=== PATIENT | male | born 1990 | race Two or more races ===

== ENCOUNTER 2020-01-05 10:14 | Inpatient (IN) | payer OTHER ==
[~2020-01-05] VITALS: Ht 182.9 cm; Wt 92.5 kg
[2020-01-05] MEDS ORDERED: AMOX500T PO (10:20)
[2020-01-05] MEDS ORDERED: IBUP-1114 PO (10:37)
[2020-01-05] MEDS ORDERED: PHEN-815 PO (10:37)
[2020-01-05 11:25] LABS: INFLUENZA A AMPLIFICATION NEGATIVE (NEGATIVE); INFLUENZA B AMPLIFICATION NEGATIVE (NEGATIVE)
[2020-01-05] MEDS ORDERED: NS 1,000 ML IV ONE ×2 (11:45→17:30)
[2020-01-05 13:06] LABS: BASO % 0.3 % (0.0-1.0); HEMATOCRIT 45.6 % (42.0-52.0); HEMOGLOBIN 15.4 g/dl (13.5-17.5); LYMPH # 1.1 10^3/uL (1.5-5.0); LYMPH % 7.1 % (24.0-44.0); MEAN CORPUSCULAR HGB CONC 33.8 g/dl (32.0-36.5); MEAN CORPUSCULAR VOLUME 94.8 fl (80.0-96.0); MONO % 12.9 % (0.0-5.0); NEUTROPHILS # 12.5 10^3/uL (1.5-8.5); NEUTROPHILS % 79.2 % (36.0-66.0); PLATELET COUNT, AUTOMATED 243 10^3/uL (150-450); RED BLOOD COUNT 4.81 10^6/uL (4.30-6.10); WHITE BLOOD COUNT 15.8 10^3/uL (4.0-10.0)
[2020-01-05 13:36] LABS: ALBUMIN 3.8 GM/DL (3.2-5.2); ALT/SGPT 19 U/L (12-78); BILIRUBIN,TOTAL 1.3 MG/DL (0.2-1.0); BLOOD UREA NITROGEN 11 MG/DL (7-18); CALCIUM LEVEL 9.6 MG/DL (8.5-10.1); CARBON DIOXIDE LEVEL 30 MEQ/L (21-32); CHLORIDE LEVEL 100 MEQ/L (98-107); GLOMERULAR FILTRATION RATE > 60.0 (>60); GLUCOSE, FASTING 90 MG/DL (70-100); LIPASE 74 U/L (73-393); POTASSIUM SERUM 4.3 MEQ/L (3.5-5.1); SODIUM LEVEL 135 MEQ/L (136-145); TOTAL PROTEIN 7.8 GM/DL (6.4-8.2)
[2020-01-05 14:31] LABS: MONO REFLEX EBV COMP NEGATIVE (NEGATIVE)
--- NOTE | 2020-01-05 14:57 | REPVR ---
PROCEDURE INFORMATION: Exam: CT Head Without Contrast Exam date and time: 01/05/2020 1:33 PM Age: 29 years old Clinical indication: Pain; Headache; Additional info: Severe migraine, with neck stiffness, sensitive light TECHNIQUE: Imaging protocol: Computed tomography of the head without contrast. Radiation optimization: All CT scans at this facility use at least one of these dose optimization techniques: automated exposure control; mA and/or kV adjustment per patient size (includes targeted exams where dose is matched to clinical indication); or iterative reconstruction. COMPARISON: No relevant prior studies available. FINDINGS: Brain: The cortical/white matter interfaces are preserved throughout the brain. There is no evidence of intracranial hemorrhage. No parenchymal mass lesions identified. Ventricles: The ventricular system is normal in size and configuration. Bones/joints: No acute fractures of the skull are identified. Sinuses: The visualized paranasal sinuses are clear. Mastoid air cells: The mastoid air cells are clear. Orbits: The orbits appear unremarkable. Soft tissues: The soft tissues appear unremarkable. IMPRESSION: Normal appearance of the brain. Electronically signed by: Dorothy Hanna On 01/05/2020 14:56:57 PM
--- NOTE | 2020-01-05 15:03 | REPVR ---
PROCEDURE INFORMATION: Exam: CT Cervical Spine Without Contrast Exam date and time: 01/05/2020 1:33 PM Age: 29 years old Clinical indication: Other: Stiff; Additional info: Severe migraine, with neck stiffness, sensitive light TECHNIQUE: Imaging protocol: Computed tomography images of the cervical spine without contrast. Radiation optimization: All CT scans at this facility use at least one of these dose optimization techniques: automated exposure control; mA and/or kV adjustment per patient size (includes targeted exams where dose is matched to clinical indication); or iterative reconstruction. COMPARISON: No relevant prior studies available. FINDINGS: Vertebrae: There is normal alignment of the visualized spine. There is no evidence of acute fracture. C2-C3: No disc herniation. No spinal canal stenosis. No neural foraminal narrowing. C3-C4: There is mild disc narrowing, uncovertebral ridging, and a small disc osteophyte complex at C3-C4, resulting in mild stenosis stenosis of the spinal canal and mild bilateral neural foraminal narrowing. C4-C5: There is mild narrowing of the C4-C5 disc with uncovertebral ridging and a small disc osteophyte complex. There is associated mild central canal stenosis and mild bilateral neural foraminal narrowing. C5-C6: . There is mild uncovertebral ridging at C5-C6. There is a small disc bulge. There is minimal central canal stenosis. There is mild left neural foraminal narrowing. C6-C7: There is minimal uncovertebral ridging at C6-C7. There is no significant central or foraminal stenosis at this level. C7-T1: No disc herniation. No spinal canal stenosis. No neural foraminal narrowing. Soft tissues: Unremarkable. Oropharynx: There is enlargement of the bilateral palatine tonsils. Nasopharynx: There is adenoid hypertrophy. Prevertebral Space: The prevertebral soft tissues appear normal. Lungs: The visualized lung apices are clear. IMPRESSION: 1. Mild multilevel degenerative disc disease with small disc osteophyte complexes at C3-C4, C4-C5, and C5-C6 resulting in mild central canal stenosis and mild bilateral neural foraminal narrowing. 2. Adenoid hypertrophy and enlargement of the bilateral palatine tonsils. Electronically signed by: Dorothy Hanna On 01/05/2020 15:03:27 PM
[2020-01-05] MEDS ORDERED: ACETAMINOPHEN 325 MG TAB As Ordered ONE (15:58)
[2020-01-05] MEDS ORDERED: VANCOMYCIN HCL 1,000 MG, VIAL MATE ADAPTER 1 EACH in D5W 250 ML IV ONE ×2 (16:00→17:00)
[2020-01-05] MEDS ORDERED: ACETAMINOPHEN 325 MG TAB PO ONE (16:00)
[2020-01-05] MEDS ORDERED: VANCOMYCIN HCL 2,000 MG in D5W 500 ML IV ONE (16:00)
[2020-01-05] MEDS ORDERED: cefTRIAXone SOD 2 GM in D5W MINI-BAG PLUS 50 ML IV ONE (16:00)
[2020-01-05 16:51] LABS: APPEARANCE, CSF CLEAR (CLEAR); COLOR, CSF COLORLESS (COLORLESS); CSF TUBE# CELL CNT TUBE 1
[2020-01-05 16:52] LABS: APPEARANCE, CSF CLEAR (CLEAR); COLOR, CSF COLORLESS (COLORLESS); CSF TUBE# CELL CNT TUBE 4
[2020-01-05 16:54] LABS: CSF TUBE# GLU TUBE 2; CSF TUBE# TP TUBE 2; GLUCOSE CSF 56 MG/DL (40-75); TOTAL PROTEIN,CSF 30 MG/DL (15-45)
[2020-01-05] MEDS ORDERED: ACYCLOVIR IV ONE (17:00)
[2020-01-05] MEDS ORDERED: dexameTHASONE 20 MG/5 ML VIAL (J1100) IV ONE (17:00)
[2020-01-05] MEDS ORDERED: D5W IV ONE (17:00)
[2020-01-05] MEDS ORDERED: IBUP-1720 PO (17:22)
[2020-01-05] MEDS ORDERED: KETOROLAC 30 MG/ML VIAL (J1885) As Ordered ONE (18:23)
[2020-01-05] MEDS ORDERED: KETOROLAC 30 MG/ML VIAL (J1885) IV ONE (18:30)
[2020-01-05] MEDS ORDERED: ACETAMINOPHEN TAB 650MG DOSE (2X325MG) PO PRN (18:45)
[2020-01-05] MEDS ORDERED: ISOVUE-370 76% 100ML VIAL (Q9967) As Ordered ONE (18:56)
--- NOTE | 2020-01-05 19:50 | HPEPDOC ---
General Date of Admission 01/05/20 Date of Service: Jan 05, 2020 Chief Complaint The patient is a 29-year-old male admitted with a reason for visit of Sore Throat. Source: Patient Exam Limitations: No limitations Timing/Duration: Day(s) Severity: Moderate, Severe Associated Symptoms: Fever, Chills, Nausea, Vomiting History of Present Illness Patient is 29 years old male with past medical history of rheumatic fever presented hospital with fever, chills, photophobia and generalized weakness. Patient stated that for 5 days ago he developed difficulties in swallowing, associated with fever up to 102 and chills alleviated by Tylenol. Also he complained of severe headache. He went to urgent care on Monday, he was tested positive for strep throat, he was prescribed amoxicillin, he took amoxicillin for 2 days, total dose 2 g. Today he developed photophobia, neck pain. In ER patient was found to have leukocytosis of 15, CT head was done and showed normal finding, CSF was done and showed protein, glucose leukocytes count within normal limit. Patient was normotensive, no tachycardia. 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 Denied any ticks or mosquitoes bite. Home Medications Scheduled Amoxicillin (Amoxicillin) 500 Mg Tablet, 1,000 MG PO DAILY, (Reported) @ NOON Scheduled PRN Ibuprofen (Ibuprofen) 200 Mg Tablet, 800 MG PO Q8H PRN for PAIN, (Reported) Phenylephrine/Dm/Acetaminop/GG (Tylenol Cold-Flu Severe [place]) 1 Each Tablet, 2 EACH PO Q4H PRN for COUGH/ CONGESTION, (Reported) Allergies Coded Allergies: No Known Allergies (Unverified , 01/05/20) Past Medical History Medical History Rheumatic fever at age 16 treated with penicillin halfway intramuscular injection Family History I personally reviewed family history and found not pertinent Social History * Smoker: Denies, former Smoker Alcohol: occationally Drugs: denies A-FIB/CHADSVASC A-FIB History Current/History of A-Fib/PAF?: No Current PO Anticoag Therapy: No Review of Systems Constitutional: Reports: Chills, Fever, Malaise, Weakness Eyes: Reports: Other (photophobia) ENT: Reports: Head Aches, Sore Throat Skin: Denies: Rash, Lesions Pulmonary: Denies: Dyspnea, Cough Cardiovascular: Denies: Chest Pain, Palpitations Gastrointestinal: Reports: Nausea, Vomiting Genitourinary: Denies: Dysuria, Frequency Hematologic: Denies: Bruising, Bleeding Excessively Endocrine: Denies: Polydipsia, Polyphagia Musculoskeletal: Reports: Neck Pain Neurological: Denies: Weakness, Numbness, Confusion, Seizures Psych: Reports: Mood Normal Physical Examination General Exam: Positive: Alert, Cooperative, Moderate Distress Eye Exam: Positive: PERRLA, Conjunctiva & lids normal ENT Exam: Positive: Other ENT (tonsils enlargement bilaterally, mild erythema, mild rigidity of the neck) Neck Exam: Positive: Other (mild neck rigidity, flexion is painful); Negative: Supple, JVD, Lymphadenopathy Chest Exam: Positive: Clear to auscultation Heart Exam: Positive: Rate Normal Telemetry: Positive: No significant arrhythmia Abdomen Exam: Positive: Normal bowel sounds Extremity Exam: Negative: Clubbing, Cyanosis Skin Exam: Negative: Nl turgor and temperature (warm to touch), Rash, Breakdown, Lesion Neuro Exam: Positive: Strength at 5/5 X4 ext, Normal Tone, Cranial Nerves 3-12 NL Psych Exam: Positive: Mental status NL, Mood NL, Memory Intact, Oriented x 3; Negative: Anxiety Vital Signs Vital Signs Date Time Temp Pulse Resp B/P (MAP) Pulse Ox O2 Delivery O2 Flow Rate FiO2 01/05/20 18:16 98 97 01/05/20 18:15 120/56 (77) 01/05/20 18:04 102.1 01/05/20 16:31 19 01/05/20 16:30 Room Air Laboratory Data Labs 24H Laboratory Tests 2 01/05/20 10:49: Influenza Type A (RT-PCR) NEGATIVE, Influenza Type B (RT-PCR) NEGATIVE, Respiratory Syncytial Virus (RT-PCR NEGATIVE 01/05/20 12:11: Immature Granulocyte % (Auto) 0.5, Neutrophils (%) (Auto) 79.2H, Lymphocytes (%) (Auto) 7.1L, Monocytes (%) (Auto) 12.9H, Eosinophils (%) (Auto) 0.0, Basophils (%) (Auto) 0.3, Neutrophils # (Auto) 12.5H, Lymphocytes # (Auto) 1.1L, Monocytes # (Auto) 2.0H, Eosinophils # (Auto) 0.0, Basophils # (Auto) 0.0, Nucleated Red Blood Cells % (auto) 0.0, Anion Gap 5L, Glomerular Filtration Rate > 60.0, Calcium Level 9.6, Total Bilirubin 1.3H, Aspartate Amino Transf (AST/SGOT) 17, Alanine Aminotransferase (ALT/SGPT) 19, Alkaline Phosphatase 68, Total Protein 7.8, Albumin 3.8, Albumin/Globulin Ratio 0.95L, Lipase 74, Monoscreen NEGATIVE 01/05/20 12:12: Urine Color YELLOW, Urine Appearance CLEAR, Urine pH 6.0, Urine Specific [place] 1.013, Urine Protein NEGATIVE, Urine Glucose (UA) NEGATIVE, Urine Ketones TRACEH, Urine Blood 2+H, Urine Nitrite NEGATIVE, Urine Bilirubin NEGATIVE, Urine Urobilinogen 0.2, Urine Leukocyte Esterase NEGATIVE, Urine WBC (Auto) 1, Urine RBC (Auto) 8H, Urine Hyaline Casts (Auto) 0, Urine Bacteria (Auto) NEGATIVE, Urine Squamous Epithelial Cells 0, Urine Mucus (Auto) SMALL, Urine Sperm (Auto) 01/05/20 12:43: POC Lactate (Misc Panel) 0.59 01/05/20 16:33: CSF Appearance CLEAR, CSF Color COLORLESS, CSF WBC (Auto) 1, CSF RBC (Auto) < 2, CSF Glucose (Tube 1) TUBE 2, CSF Total Protein (Tube 1) TUBE 2, CSF Cell Count Tube # TUBE 4, CSF Polynuclear WBCs (%) , CSF Glucose 56, CSF Total Protein 30 01/05/20 18:18: POC Glucose (Misc Panel) 172H, POC Sodium (Misc Panel) 135L, POC Potassium (Misc Panel) 3.7, POC Chloride (Misc Panel) 98, POC Total CO2 (Misc Panel) 25.0, POC Blood Urea Nitrogen (Misc Panel 10, POC Ionized Calcium (Misc Panel) 4.5, POC Creatinine (Misc Panel) 1.2, POC Hematocrit (Misc Panel) 41.0 CBC/BMP Laboratory Tests 01/05/20 12:11 Microbiology Microbiology 01/05/20 , Received Pending 01/05/20 Gram Stain - Preliminary, Resulted 01/05/20 CSF Culture, Resulted Pending 01/05/20 Group A Streptococcus Screen (ISHA), Received Pending 01/05/20 Blood Culture, Received Pending 01/05/20 Blood Culture, Received Pending 01/05/20 Respiratory Virus Panel (PCR) (ISHA) - Final, Complete Assessment/Plan Patient is 29 years old male with past medical history of rheumatic fever presented hospital with fever, chills, photophobia and generalized weakness. Patient stated that for 5 days ago he developed difficulties in swallowing, associated with fever up to 102 and chills alleviated by Tylenol. Also he complained of severe headache. He went to urgent care on Monday, he was tested positive for strep throat, he was prescribed amoxicillin, he took amoxicillin for 2 days, total dose 2 g. Today he developed photophobia, neck pain. In ER patient was found to have leukocytosis of 15, CT head was done and showed normal finding, CSF was done and showed protein, glucose leukocytes count within normal limit. Patient was normotensive, no tachycardia. Problems (1) Sepsis Status: Acute Problem Text: Patient has leukocytosis of 15, fever of 102 There is concern for meningitis given neck rigidity, positive Kerning sign, photophobia. CSF did not reveal abnormality, however patient took 2 g of amoxicillin for past [address] neck was done and did not reveal retropharyngeal abscess, CT head negative for any lesions. We will check Lyme PCR, HIV There is possibility that patient could develop aseptic meningitis secondary to amoxicillin. Will check sedimentation rate, CRP, echo given history of rheumatoid fever in the past. IV fluid I will continue empiric antibiotics vancomycin and ceftriaxone IV which will cover Streptococcus pyogenes as well I will continue Decadron for 2 days in total. Appreciate/agree with ID consult IV fluid Tylenol when necessary If patient continues to have photophobia, headache tomorrow will repeat lumbar puncture (2) Pharyngitis Status: Acute Problem Text: According to patient throat screen for streptococcus was positive Patient has been treated with amoxicillin for 2 days, [address] neck negative for retropharyngeal abscess I started empirically treatment for possible meningitis, will cover Strep pyogenes as well Plan / VTE VTE Prophylaxis Ordered?: Yes CORBIN COX DO Jan 05, 2020 19:50
[2020-01-05 19:54] VITALS: BP 137/66
[2020-01-05 20:07] LABS: BASO % 0.2 % (0.0-1.0); HEMATOCRIT 40.8 % (42.0-52.0); HEMOGLOBIN 13.9 g/dl (13.5-17.5); LYMPH # 0.7 10^3/uL (1.5-5.0); LYMPH % 4.4 % (24.0-44.0); MEAN CORPUSCULAR HEMOGLOBIN 31.6 pg (27.0-33.0); MEAN CORPUSCULAR HGB CONC 34.1 g/dl (32.0-36.5); MEAN CORPUSCULAR VOLUME 92.7 fl (80.0-96.0); MONO # 0.6 10^3/uL (0.0-0.8); NEUTROPHILS # 13.7 10^3/uL (1.5-8.5); NEUTROPHILS % 90.7 % (36.0-66.0); PLATELET COUNT, AUTOMATED 247 10^3/uL (150-450); WHITE BLOOD COUNT 15.1 10^3/uL (4.0-10.0)
--- NOTE | 2020-01-05 20:14 | REPVR ---
PROCEDURE INFORMATION: Exam: CT Neck With Contrast Exam date and time: 01/05/2020 7:29 PM Age: 29 years old Clinical indication: Neck pain; Additional info: Retropharyngeal abscess TECHNIQUE: Imaging protocol: Computed tomography images of the neck with intravenous contrast. Radiation optimization: All CT scans at this facility use at least one of these dose optimization techniques: automated exposure control; mA and/or kV adjustment per patient size (includes targeted exams where dose is matched to clinical indication); or iterative reconstruction. Contrast material: ISO 370; Contrast volume: 75 ml; Contrast route: IV; COMPARISON: CT Spine,cervical w/o contrast 01/05/2020 1:25 PM FINDINGS: Nasopharynx: Prominence of the nasopharyngeal adenoids. Oropharynx: There is prominence of the left greater than right palatine tonsils. No fluid collection. Hypopharynx: Unremarkable. Larynx: Unremarkable. Normal epiglottis. Retropharyngeal space: Unremarkable. Submandibular/Parotid glands: Normal. Glands are normal in size. Thyroid: Normal. No enlarged or calcified nodules. Lymph nodes: There is mild cervical lymphadenopathy, likely reactive. Trachea: Visualized trachea is unremarkable. Lungs: Unremarkable as visualized. Bones/joints: Unremarkable. No acute fracture. Soft tissues: Unremarkable. No significant soft tissue swelling. IMPRESSION: 1. Prominence of the nasopharyngeal adenoids and left greater than right palatine tonsils. 2. No fluid collection. 3. Mild cervical adenopathy, likely reactive. Clinical follow-up is recommended. Electronically signed by: Scotty Hanna On 01/05/2020 20:13:40 PM
[2020-01-05] MEDS: HEPARIN SOD (PORCINE) 5000 UNITS/ML VIAL (J1644 PER 1000UNITS) SC SCH (20:16)
[2020-01-05] MEDS: NS 1,000 ML IV SCH (20:16)
[2020-01-05 20:41] LABS: ERYTHROCYTE SEDIMENTATION RATE 44 mm/hr (0-15)
[2020-01-05] MEDS ORDERED: dexameTHASONE 4 MG/ML 1ML VIAL (J1100) IV SCH (21:00)
[2020-01-05] MEDS: dexameTHASONE 20 MG/5 ML VIAL (J1100) IV SCH (23:25)
[2020-01-06] VITALS: BP 140/71
[2020-01-06 04:00] VITALS: BP 144/79
[2020-01-06] MEDS: NS 1,000 ML IV SCH (04:27)
[2020-01-06] MEDS: dexameTHASONE 20 MG/5 ML VIAL (J1100) IV SCH ×4 (04:27→23:31)
[2020-01-06] MEDS ORDERED: VANCOMYCIN HCL 1,000 MG, VIAL MATE ADAPTER 1 EACH in D5W 250 ML IV SCH ×2 (06:00→14:00)
[2020-01-06 08:00] VITALS: BP 135/74
[2020-01-06] MEDS ORDERED: IBUPROFEN 800 MG TAB PO PRN (08:00)
[2020-01-06 08:41] LABS: HEMOGLOBIN 14.6 g/dl (13.5-17.5); MEAN CORPUSCULAR HEMOGLOBIN 31.9 pg (27.0-33.0); MEAN CORPUSCULAR VOLUME 93.9 fl (80.0-96.0); PLATELET COUNT, AUTOMATED 250 10^3/uL (150-450); RED BLOOD COUNT 4.58 10^6/uL (4.30-6.10); WHITE BLOOD COUNT 13.1 10^3/uL (4.0-10.0)
[2020-01-06] MEDS: cefTRIAXone SOD 1 GM in D5W MINI-BAG PLUS 50 ML IV SCH ×2 (08:52→20:02)
[2020-01-06] MEDS: HEPARIN SOD (PORCINE) 5000 UNITS/ML VIAL (J1644 PER 1000UNITS) SC SCH ×2 (08:53→20:03)
[2020-01-06] MEDS: ACETAMINOPHEN 500 MG TAB PO SCH ×3 (08:53→20:02)
[2020-01-06 09:13] LABS: ALBUMIN 3.1 GM/DL (3.2-5.2); ALT/SGPT 16 U/L (12-78); BILIRUBIN,TOTAL 0.5 MG/DL (0.2-1.0); BLOOD UREA NITROGEN 9 MG/DL (7-18); CALCIUM LEVEL 8.6 MG/DL (8.5-10.1); CARBON DIOXIDE LEVEL 26 MEQ/L (21-32); CHLORIDE LEVEL 108 MEQ/L (98-107); CREATININE FOR GFR 1.04 MG/DL (0.70-1.30); GLOMERULAR FILTRATION RATE > 60.0 (>60); GLUCOSE, FASTING 185 MG/DL (70-100); MAGNESIUM LEVEL 2.4 MG/DL (1.8-2.4); POTASSIUM SERUM 4.5 MEQ/L (3.5-5.1); SODIUM LEVEL 137 MEQ/L (136-145); TOTAL PROTEIN 7.6 GM/DL (6.4-8.2)
[2020-01-06 10:59] LABS: HIV 1&2 SCREEN CENTAUR NEGATIVE (NEGATIVE)
--- NOTE | 2020-01-06 12:13 | IPNPDOC ---
Text Note Date of Service The patient was seen on 01/06/20. NOTE Subjective: Says the neck pain is better. Denies any photophobia. Did not have any fever overnight. Says has been sweating all night. Physical Exam: Vitals: As below General Exam: Positive: Alert, Cooperative, Moderate Distress Eye Exam: Positive: PERRLA, Conjunctiva & lids normal ENT Exam: Positive: Other ENT (tonsils enlargement bilaterally, mild erythema, mild rigidity of the neck) Neck Exam: Positive: Other (mild neck rigidity, flexion is painful); Negative: Supple, JVD, Lymphadenopathy Chest Exam: Positive: Clear to auscultation Heart Exam: Positive: Rate Normal Telemetry: Positive: No significant arrhythmia Abdomen Exam: Positive: Normal bowel sounds Extremity Exam: Negative: Clubbing, Cyanosis Skin Exam: Negative: Nl turgor and temperature (warm to touch), Rash, Breakdown, Lesion Neuro Exam: Positive: Strength at 5/5 X4 ext, Normal Tone, Cranial Nerves 3-12 NL Psych Exam: Positive: Mental status NL, Mood NL, Memory Intact, Oriented x 3; Negative: Anxiety Labs and radiology : reviewed. Assessment and plan: Patient is 29 years old male with past medical history of rheumatic fever presented hospital with fever, chills, photophobia and generalized weakness. Patient stated that for 5 days ago he developed difficulties in swallowing, associated with fever up to 102 and chills alleviated by Tylenol. Also he complained of severe headache. He went to urgent care on Monday, he was tested positive for strep throat, he was prescribed am oxicillin, he took amoxicillin for 2 days, total dose 2 g then he developed high fever of 104 with photophobia, neck pain so came to the ED. In ER patient was found to have leukocytosis of 15, CT head was done and showed normal finding, CSF was done and showed protein, glucose leukocytes count within normal limit. Sepsis/ aseptic meningitis There is concern for meningitis given neck rigidity, positive Kerning sign, photophobia. CSF did not reveal abnormality, however patient took 2 g of amoxic illin for past 2 days so may not be accurate. CT neck was done and did not reveal retropharyngeal abscess, CT head negative for any lesions. [place] and HIV negative. We will check Lyme PCR There is possibility that patient could develop aseptic meningitis secondary to amoxicillin on NSAIDS. He was taking ibuprofen at home continue empiric antibiotics vancomycin and ceftriaxone IV which will cover Streptococcus pyogenes. Will dc vanco if MRSA pcr is negative. continue Decadron for 2 days in total. Tylenol when necessary Acute Pharyngitis According to patient throat screen for streptococcus was positive Patient has been treated with amoxicillin for 2 days, [address] neck negative for retropharyngeal abscess Currently on ceftriaxone. VS,Fishbone, I+O VS, Fishbone, I+O Laboratory Tests 01/05/20 12:11 01/05/20 19:46 01/06/20 08:15 Vital Signs Date Time Temp Pulse Resp B/P (MAP) Pulse Ox O2 Delivery O2 Flow Rate FiO2 01/06/20 08:00 96.9 65 19 135/74 (94) 97 Room Air I&O- Last 24 Hours up to 6 AM 01/06/20 06:00 Intake Total 4090 ml Output Total 875 ml Balance 3215 ml ANTOINE FREGOSO MD Jan 06, 2020 12:13
[2020-01-06 12:20] VITALS: BP 122/71
[2020-01-06 18:00] VITALS: BP 121/70
[2020-01-06 19:54] VITALS: BP 136/71
[2020-01-06] MEDS: SENOKOT S TAB PO SCH (20:02)
[2020-01-07 04:00] VITALS: BP 144/69
[2020-01-07] MEDS: dexameTHASONE 20 MG/5 ML VIAL (J1100) IV SCH ×2 (05:28→11:22)
[2020-01-07 06:59] LABS: BASO % 0.1 % (0.0-1.0); HEMATOCRIT 40.9 % (42.0-52.0); HEMOGLOBIN 13.9 g/dl (13.5-17.5); LYMPH # 1.5 10^3/uL (1.5-5.0); LYMPH % 6.2 % (24.0-44.0); MEAN CORPUSCULAR HEMOGLOBIN 32.3 pg (27.0-33.0); MEAN CORPUSCULAR VOLUME 94.9 fl (80.0-96.0); MONO # 1.1 10^3/uL (0.0-0.8); MONO % 4.6 % (0.0-5.0); NEUTROPHILS # 21.5 10^3/uL (1.5-8.5); NEUTROPHILS % 88.2 % (36.0-66.0); PLATELET COUNT, AUTOMATED 278 10^3/uL (150-450); RED BLOOD COUNT 4.31 10^6/uL (4.30-6.10); WHITE BLOOD COUNT 24.4 10^3/uL (4.0-10.0)
[2020-01-07 07:18] LABS: BLOOD UREA NITROGEN 10 MG/DL (7-18); C REACTIVE PROTEIN QUANTITATIV 7.81 MG/DL (0.00-0.30); CALCIUM LEVEL 9.2 MG/DL (8.5-10.1); CARBON DIOXIDE LEVEL 29 MEQ/L (21-32); CHLORIDE LEVEL 108 MEQ/L (98-107); CREATININE FOR GFR 0.96 MG/DL (0.70-1.30); GLOMERULAR FILTRATION RATE > 60.0 (>60); GLUCOSE, FASTING 156 MG/DL (70-100); SODIUM LEVEL 139 MEQ/L (136-145)
[2020-01-07] MEDS: HEPARIN SOD (PORCINE) 5000 UNITS/ML VIAL (J1644 PER 1000UNITS) SC SCH (08:50)
[2020-01-07] MEDS: cefTRIAXone SOD 1 GM in D5W MINI-BAG PLUS 50 ML IV SCH (08:50)
[2020-01-07] MEDS: ACETAMINOPHEN 500 MG TAB PO SCH (08:50)
[2020-01-07] MEDS: SENOKOT S TAB PO SCH (08:50)
[2020-01-07 09:00] VITALS: BP 132/74
--- NOTE | 2020-01-07 09:28 | CR ---
DATE OF CONSULTATION: 01/06/2020 HISTORY OF PRESENT ILLNESS: Theo Sutherland is a 29-year-old male in the who presented with fever, chills, sore throat, photophobia, neck pain, back pain and generalized weakness that started five days ago. The patient reports that he initially went to urgent care and underwent a rapid strep test, which was found to be positive. At the urgent care they wrote him a prescription for amoxicillin 500 mg two tablets daily. He filled the prescription and took one dose of it outpatient. The next day he reports that he woke up and felt very stiff in his neck and his back with 15/10 pain. He also had a fever. At the insistence of his , he went to the hospital where he is now on [address] [place] undergoing IV antibiotic therapy. Of note, the patient does have a history of rheumatic fever when he was 16 years old. He reports that he got strep throat from his then girlfriend which worsened to the point where he got joint pain in both of knees. He was transferred to a [facility] in [place] where he underwent joint aspiration. In addition, he was found to have mitral valve prolapse so he had cardiac involvement of his strep infection. The patient has not had any many strep infections since that time, possibly just one, and he has not been sick recently with no sick contacts. He does have three young kids at home and none of them have been sick. ALLERGIES: He has no known allergies. 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 FAMILY HISTORY: Insignificant at this time. SOCIAL HISTORY: He is a former smoker, but has quit. Alcohol: He drinks occasionally. Drugs: He denies. REVIEW OF SYSTEMS: As per HPI . PHYSICAL EXAMINATION: His vitals at this time are temperature 97.2 with a T-max of 102.1 yesterday evening at 6:00 p.m. Pulse is 62, respiratory rate of 16, blood pressure of 136/71, pulse oximetry of 97%. Generally, he is lying in bed, he is very calm and cooperative, in no acute distress. HEENT: Head is normocephalic, atraumatic. His extraocular movements are intact. His pupils are equally round and reactive to light. He has moist mucous membranes. He has very enlarged bilateral tonsils with mucous on both tonsils. He has somewhat left sided very small cervical adenopathy. He has tenderness around his posterior auricular lymph nodes, but no enlarged lymph nodes. He can freely move his neck with no pain, but he does have some pain with palpation on the back of his neck. No cervical adenopathy. NECK: Supple. No thyromegaly. CHEST: He has even chest rise. LUNGS: He is clear to auscultation bilaterally with no adventitious breath sounds appreciated. CARDIAC: He does have 2/6 systolic ejection murmur in the left upper sternal border radiating down to the axilla. Otherwise, normal S1 and normal S2 with no other murmurs, rubs or gallops. ABDOMEN: Soft and nontender to palpation with positive bowel sounds. No masses, no organomegaly. EXTREMITIES: Are without clubbing, cyanosis, or edema. NEURO: Cranial nerves II through XII are intact with no focal deficits. PSYCH: She is awake, alert and oriented times three with normal mood and normal affect. SKIN: He has no new rashes. LYMPHATICS: He has no enlarged lymph nodes in the femoral chain. LABORATORIES: His CBC demonstrates a white blood cell count of 13.1 today, down from 15.8 on admission. His hemoglobin is 14.6. His hematocrit is 43. Platelet count is 250. His last ESR was drawn yesterday and was found to be 44. On chemistries, he has a sodium of 137, potassium of 4.5, chloride of 108, carbon dioxide of 26, a BUN of 9, and a creatinine of 1.04. His liver enzymes are within normal limits. His albumin is 10.1. His procalcitonin was found to be 0.32 and his CRP was found to be 16. A urinalysis was drawn and was found to be normal except for 2+ blood. He underwent a lumbar puncture which found clear appearance, colorless, 1 white blood cell, less than 2 red blood cells, with a normal differential. CSF Lyme IgG is still pending. EBV labs are still pending. HIV is negative. [place] screen has been negative and Methicillin-resistant Staphylococcus aureus (MRSA) is not detected. Three blood cultures have been drawn and have been negative at 24 hours. The gram stain and CSF culture of the CSF fluid has had no grown. Respiratory viral panel has been negative. A group A strep screen is pending. There was no meningitis or encephalitis found in the CSF. On imaging, the patient underwent a head CT on 01/05/2020 which demonstrates normal appearance of the brain. On 01/05/2020 he underwent a cervical spine CT which found mild multilevel degenerative disc disease with small disc osteophyte complexes at C3-C4, C4-C5, and C5-C6 resulting in mild central canal stenosis and mild bilateral neuroforaminal narrowing. Also found, adenoid hypertrophy at the margin of the bilateral palatine tonsil. In addition, the patient underwent a neck CT on that same day which found prominence of the nasopharyngeal adenoids and left greater than right palatine tonsils. No fluid collection. Mild cervical adenopathy, likely reactive. Clinical followup is recommended. 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 With known positive group A strep screen, concerning for recurrent attack of rheumatic heat disease versus group A strep pharyngitis. PLAN: 1. We stopped the patient's vancomycin as his MRSA screen was negative. 2. We have ordered an echocardiogram to evaluate the patient's rheumatoid heart disease. The patient reportedly was treated for about year to 18 months with penicillin. Per the current guidelines, it is important to treat the patient until the age of 20, therefore, he may not have been treated long enough for his rheumatoid heart disease, which had cardiac involvement. We will evaluate his mitral valve on the echocardiogram at this time. 3. We agree with antibiotic choice of ceftriaxone at this time as this will cover the Streptococcus bacteria. We will continue to follow along this patient with you and would be happy to answer any questions as needed. SHIRA
[2020-01-07 14:16] LABS: EBV AB TO NUCLEAR ANTIGEN >600.0 U/mL (0.0-17.9); EBV VIRAL CAPSID AG IgM <36.0 U/mL (0.0-35.9)
--- NOTE | 2020-01-07 19:47 | ECHO ---
DATE OF PROCEDURE: 01/07/2020 REFERRING PHYSICIAN: Dr. Mata INDICATION: Rheumatic heart disease. Height 185, weight 93 kg. DIMENSIONS: IVS: 1.0 LV: 5.3 LVPW: 0.9 LA: 3.7 Aorta: 2.7 RV: 3.0 Left atrial volume index: 24 IVC: 1.9 Mitral E wave velocity: 112 A wave: 61 E prime septal: 11.1 E prime lateral: 7.4 FINDINGS: The study is of good technical quality. The patient is in sinus rhythm with ventricular rate in the 50s. Left ventricle has normal size and systolic function, estimated left ventricular ejection fraction (LVEF) 65-70%. Right ventricle also normal size and systolic function. Both atria appear normal. All four cardiac valves were well seen and appear structurally intact. No pericardial effusion is noted. Inferior vena cava is in upper limits of normal size, but appropriately collapses with inspiration. Aortic root and aortic arch appear normal. Limited visualization of abdominal aorta also appears normal. Doppler interrogation reveals competent mitral valve. There is trace mitral and trace tricuspid insufficiency. Trace pulmonic insufficiency is also present. Mitral inflow pattern and tissue Doppler imaging of mitral annulus revealed normal diastolic function. CONCLUSIONS: 1. Study is of good technical quality, the patient is in sinus rhythm. 2. Normal left ventricular (LV) size, systolic and diastolic function. 3. No significant valvular disease. 4. Likely normal central venous pressure, unable to estimate pulmonary artery pressure but no signs to suggest pulmonary hypertension. COMMENT: Subacute bacterial endocarditis (SBE) prophylaxis is not recommended. Essentially normal echocardiogram.
[2020-01-08 00:09] LABS: Lyme Disease IgG/IgM Antibodie <0.91 ISR (0.00-0.90); Lyme Disease IgM Ab Quantitati <0.80 index (0.00-0.79)
--- NOTE | 2020-01-08 06:01 | DS.PDOC ---
Discharge Summary General Date of Admission Jan 05, 2020 at 18:31 Date of Discharge 01/07/20 Discharge Summary PROCEDURES PERFORMED DURING STAY: Lumber puncture ECHO: 1. Study is of good technical quality, the patient is in sinus rhythm. 2. Normal left ventricular (LV) size, systolic and diastolic function. 3. No significant valvular disease. 4. Likely normal central venous pressure, unable to estimate pulmonary artery pressure but no signs to suggest pulmonary hypertension. DISCHARGE DIAGNOSES: Acute Strep A pharingitis Sepsis COMPLICATIONS/CHIEF COMPLAINT: Sepsis. HISTORY OF PRESENT ILLNESS: See History and physical HOSPITAL COURSE: Patient is 29 years old male with past medical history of rheumatic fever presented hospital with fever, chills, photophobia and generalized weakness. Patient stated that for 5 days ago he developed difficulties in swallowing, associated with fever up to 102 and chills alleviated by Tylenol. Also he complained of severe headache. He went to urgent care on Monday, he was tested positive for strep throat, he was prescribed amoxicillin, he took amoxicillin for 2 days, total dose 2 g then he developed high fever of 104 with photophobia, neck pain so came to the ED. In ER patient was found to have leukocytosis of 15, CT head was done and showed normal finding, CSF was done and showed protein, glucose leukocytes count within normal limit. Sepsis due to exaggerated reaction to strep throat possibly due to h/o rheumatic fever No meningitis or encephalitis [place], lyme and HIV negative. blood cultures negative. continue amoxycillin 1 gm daily Acute Strep A Pharyngitis According to patient throat screen for streptococcus A was positive in urgent care Here strep throat shows only group C CT neck negative for retropharyngeal abscess Seen By ID continue to finish the course of amoxycillin. History of Rheumatic fever and rhematic heart disease at age 16 years Echo this admission is normal. DISCHARGE MEDICATIONS: Please see below. ALLERGIES: Please see below. PHYSICAL EXAMINATION ON DISCHARGE: VITAL SIGNS: Please see below. General Exam: Positive: Alert, Cooperative, Moderate Distress Eye Exam: Positive: PERRLA, Conjunctiva & lids normal ENT Exam: Positive: Other ENT (tonsils enlargement bilaterally, mild erythema, mild rigidity of the neck) Neck Exam: Positive: Other (mild neck rigidity, flexion is painful); Negative: Supple, JVD, Lymphadenopathy Chest Exam: Positive: Clear to auscultation Heart Exam: Positive: Rate Normal Telemetry: Positive: No significant arrhythmia Abdomen Exam: Positive: Normal bowel sounds Extremity Exam: Negative: Clubbing, Cyanosis Skin Exam: Negative: Nl turgor and temperature (warm to touch), Rash, Breakdown, Lesion Neuro Exam: Positive: Strength at 5/5 X4 ext, Normal Tone, Cranial Nerves 3-12 NL Psych Exam: Positive: Mental status NL, Mood NL, Memory Intact, Oriented x 3; Negative: Anxiety LABORATORY DATA: Please see below. ACTIVITY: [As tolerated]. DIET: Normal DISPOSITION: 01 Home, Self-Care. DISCHARGE INSTRUCTIONS: Follow up at [facility] DISCHARGE CONDITION: [Stable]. TIME SPENT ON DISCHARGE: 35 minutes. Vital Signs/I&Os Vital Signs Date Time Temp Pulse Resp B/P (MAP) Pulse Ox O2 Delivery O2 Flow Rate FiO2 01/07/20 09:00 97.2 62 16 132/74 (93) 98 Room Air I&O- Last 24 Hours up to 6 AM 01/08/20 06:00 Output Total 600 ml Balance -600 ml Laboratory Data Labs 24H Laboratory Tests 2 01/07/20 06:40: Immature Granulocyte % (Auto) 0.9, Neutrophils (%) (Auto) 88.2H, Lymphocytes (%) (Auto) 6.2L, Monocytes (%) (Auto) 4.6, Eosinophils (%) (Auto) 0.0, Basophils (%) (Auto) 0.1, Neutrophils # (Auto) 21.5H, Lymphocytes # (Auto) 1.5, Monocytes # (Auto) 1.1H, Eosinophils # (Auto) 0.0, Basophils # (Auto) 0.0, Nucleated Red Blood Cells % (auto) 0.0, Anion Gap 2L, Glomerular Filtration Rate > 60.0, Calcium Level 9.2, C-Reactive Protein, Quantitative 7.81H CBC/BMP Laboratory Tests 01/07/20 06:40 Microbiology Microbiology 01/05/20 Blood Culture - Preliminary, Resulted No Growth after 48 hours. All Specime... 01/05/20 - Final, Complete 01/05/20 Gram Stain - Final, Complete 01/05/20 CSF Culture - Final, Complete 01/05/20 Group A Streptococcus Screen (ISHA) - Final, Complete Streptococcus Group C 01/05/20 Blood Culture - Preliminary, Resulted No Growth after 48 hours. All Specime... 01/05/20 Blood Culture - Preliminary, Resulted No Growth after 48 hours. All Specime... 01/05/20 Respiratory Virus Panel (PCR) (ISHA) - Final, Complete Discharge Medications Scheduled Amoxicillin (Amoxicillin) 500 Mg Tablet, 1,000 MG PO DAILY, (Reported) @ NOON Scheduled PRN Ibuprofen (Ibuprofen) 200 Mg Tablet, 800 MG PO Q8H PRN for PAIN, (Reported) Phenylephrine/Dm/Acetaminop/GG (Tylenol Cold-Flu Severe Caplet) 1 Each Tablet, 2 EACH PO Q4H PRN for COUGH/ CONGESTION, (Reported) Allergies Coded Allergies: No Known Allergies (Unverified , 01/05/20) ANTOINE FREGOSO MD Jan 08, 2020 06:01
== END 2020-01-07 13:50 | disposition home or self-care (01) | DRG 872 ==
LOC: M ED 10:14 → M ED INP 18:31 → ENRESERV 19:07 → M PCU 19:54 → M MS4PR 01-06 12:10
PROVIDERS: ADMIT Internal Medicine; ATTEND Internal Medicine Nephrology
PROC: 009U3ZX Drainage of Spinal Canal, Percutaneous Approach, Diagnostic (ICD-10-PCS; principal; 2020-01-05)
DX: A41.9 Sepsis, unspecified organism (principal); J02.0 Streptococcal pharyngitis; Z87.891 Personal history of nicotine dependence; Z86.79 Personal history of other diseases of the circulatory system

== ENCOUNTER 2020-09-26 21:09 | Emergency (ER) | payer OTHER ==
[~2020-09-26] VITALS: Ht 182.9 cm; Wt 97.6 kg
[~2020-09-26 21:09] MED LIST: AMOX500T PO; IBUP-1114 PO; IBUP-1720 PO; PHEN-815 PO
[2020-09-26 21:10] VITALS: BP 133/68
[2020-09-26] MEDS ORDERED: BOOSTRIX/ADACEL VACCINE (DIPHTH/PERTUSS/ACELL/TETANUS) 0.5ML SYR IM ONE (21:45)
[2020-09-26] MEDS ORDERED: LIDOCAINE W/EPINEPHRINE 1% 20ML VIAL As Ordered ONE (21:48)
[2020-09-26] MEDS ORDERED: LIDOCAINE W/EPINEPHRINE 1% 20ML VIAL SC ONE (22:00)
== END 2020-09-26 22:27 | disposition home or self-care (01) ==
LOC: M ED 21:09
DX: S01.21XA Laceration without foreign body of nose, initial encounter (principal); X58.XXXA Exposure to other specified factors, initial encounter; Y92.89 Other specified places as the place of occurrence of the external cause